=== PATIENT | female | born 1970 | race American Indian/Alaskan Native ===

== ENCOUNTER 2017-04-12 22:15 | Emergency (ER) | payer MEDICAID ==
[2017-04-12] MEDS ORDERED: DILAUDID IV ONE (23:20)
[2017-04-12] MEDS ORDERED: NACL 0.9% 1000 ML 1,000 ML IV ONE (23:21)
[2017-04-12] MEDS ORDERED: XYLOCAINE TOPICAL 2% TP ONE (23:21)
--- NOTE | 2017-04-12 23:39 | Emergency Department Report ---
HPI - General Chief Complaint: Abdominal Pain Time Seen by Provider: 04/12/17 23:20 - HPI HPI: Chief complaint; I have abdominal back and buttock pain Patient had laparoscopic hysterectomy 1 week ago. She had been taking oxycodone 5 for pain was tolerable until Wednesday. She states she tried to ignore it thinking he might be normal postsurgical pain. But today it got worse , which she has been doubling up on her oxicodone and then came to the ED. Patient denied any fever or chills night sweats. Does have a history of hemorrhoid complaining of rectal pain similar to previous hemorrhoid pain. Patient denies any dysuria Symptoms No Blood in Urine No Blood in Stools. ED Past Medical Hx - Past Medical History Previous Medical History?: Yes Hx Hypertension: Yes Hx Psychiatric Treatment: Yes (depression) - Surgical History Past Surgical History?: Yes Hx Pacemaker: No Additional Surgical History: c4 & c5. anal-vaginal fistula repair. colostomy/ reversal. x1. lymph nodes removed. laparoscopic hysterectomy - Social History Smoking Status: Current Every Day Smoker - Medications Home Medications: Home Medications Medication Instructions Recorded Confirmed Last Taken Type Hydrochlorothiazide [HCTZ] 25 mg PO QDAY 06/21/13 11/05/14 11/04/14 History Aspirin [Aspirin BABY CHEW TAB] 81 mg PO QDAY 06/29/14 11/05/14 11/04/14 History Citalopram Hydrobromide [celeXA] 20 mg PO DAILY 11/05/14 11/05/14 11/04/14 History Gabapentin [Neurontin] 300 mg PO Q8H PRN 11/05/14 11/05/14 11/05/14 History Losartan [Cozaar] 25 mg PO QDAY 11/05/14 11/05/14 11/04/14 History Naproxen [Naprosyn TAB] 500 mg PO DAILY 11/05/14 11/05/14 11/05/14 History Potassium Chloride 10 meq PO QDAY #30 capsule.er 11/06/14 Unknown Rx traMADol [Ultram] 50 mg PO Q6HR PRN #20 tablet 02/06/16 Unknown Rx Ciprofloxacin HCl [Ciprofloxacin 500 mg PO Q12HR #14 tab 04/13/17 Unknown Rx TAB] metroNIDAZOLE [Flagyl TAB] 500 mg PO Q12HR #14 tab 04/13/17 Unknown Rx oxyCODONE /ACETAMINOPHEN [Percocet 1 tab PO Q6HR PRN #7 tablet 04/13/17 Unknown Rx 5/325 mg] ED Review of Systems ROS: Stated complaint: BACKPAIN Other details as noted in HPI Comment: All other systems reviewed and negative Endocrine: no symptoms reported Gastrointestinal: nausea, vomiting Musculoskeletal: back pain Physical Exam - Physical Exam Vital Signs: Vital Signs 04/12/17 23:00 Temperature 99.3 F Pulse Rate 102 H Respiratory 18 Rate Blood Pressure 131/75 O2 Sat by Pulse 99 Oximetry Physical Exam: Vital signs reviewed Gen. alert and oriented 3 in no distress Head atraumatic normocephalic Eyes PERR LA EOMI Chest regular rate and rhythm normal S1-S2 lungs clear bilaterally Abdomen soft nondistended Back no point tenderness paravertebral tenderness Neuro no focal deficit. Psych normal mood. Rectal external hemorrhoids, dry, scattered condyloma, no melena. ED Course Vital Signs 04/12/17 23:00 Temperature 99.3 F Pulse Rate 102 H Respiratory 18 Rate Blood Pressure 131/75 O2 Sat by Pulse 99 Oximetry - Reevaluation(s) Reevaluation #1: 04/13/17 01:18 ER Presentation Patient Received Dilaudid 1 Mg IV for Pain. Soon after Patient Started Yelling for More Pain Medicine. Patient advised to allow appropriate time for medicine to take affect. However patient remained agitated complaining of hemorrhoid pain, started lidocaine jelly and applied that to the hemorrhoids. 15 minutes later the patient complained that that she needs more lidocaine I advised patient that the lidocaine jelly cannot be applied to soon after the first dose. Patient became very angry, very verbally abusive towards myself and staff. CT abdomen and pelvis showed only mild colitis. ED Medical Decision Making - Lab Data Result diagrams: 04/13/17 00:39 04/13/17 00:39 Critical care attestation.: If time is entered above; I have spent that time in minutes in the direct care of this critically ill patient, excluding procedure time. ED Disposition Clinical Impression: Colitis Disposition: DC-01 TO HOME OR SELFCARE Is pt being admited?: No Does the pt Need Aspirin: No Condition: Stable Prescriptions: Ciprofloxacin HCl [Ciprofloxacin TAB] 500 mg PO Q12HR #14 tab metroNIDAZOLE [Flagyl TAB] 500 mg PO Q12HR #14 tab oxyCODONE /ACETAMINOPHEN [Percocet 5/325 mg] 1 tab PO Q6HR PRN #7 tablet PRN Reason: Pain Referrals: PRIMARY CARE, [Primary Care Provider] - 3-5 Days Forms: Work/School Release Form(ED)
--- NOTE | 2017-04-13 00:32 | Cat Scan Report ---
FINAL REPORT PROCEDURE: CT ABDOMEN PELVIS WO CON TECHNIQUE: Computerized axial tomography of the abdomen and pelvis was performed without intravenous contrast. This study is performed without intravascular contrast material and its sensitivity for abdominal and pelvic pathology, including neoplasms, inflammation, abscess, free fluid, thrombosis, arterial dissection and infarction, is reduced compared with a contrast enhanced study. HISTORY: abd pain post hysterectomy COMPARISON: No prior studies are available for comparison. FINDINGS: Visualized lower thorax: No significant abnormality. Liver: Normal size and attenuation. Spleen: Normal size and attenuation. Gallbladder and biliary system: Normal. Pancreas: Normal. Adrenals: Normal. Kidneys: Both kidneys have normal size. No hydronephrosis.. GI tract: No obstruction is seen. No ileus or enteritis. The cecum is normal. Minimal fecal debris identified throughout the colon. There is slight bowel wall thickening involving the sigmoid colon region. There is some surrounding postoperative changes from the patient's recent hysterectomy. Minimal fluid in the lower pelvic region is noted. Earlier the short segment colitis is not excluded on this study. No complication is seen at this time. There appears to have been previous surgery in the left lower colon region.. Lymph nodes and mesentery: There is some mesenteric changes in the lower pelvis consistent with the patient's history of recent hysterectomy. Postoperative changes with minimal fluid. Vasculature: Normal. Bladder: Normal. Reproductive organs: The uterus has been removed. No pelvic masses are noted. Postoperative changes with some streaking of the mesentery in the lower pelvis and minimal lower pelvic fluid is noted.. Peritoneum: Minimal fluid in the lower pelvis. Postoperative change from recent hysterectomy is noted.. Musculoskeletal structures: No significant abnormality. Other: There is a fat containing umbilical hernia cavity. There are some postoperative changes identified in the anterior abdominal wall near the umbilicus. No large fluid collection, seroma or hematoma is seen at this time.. IMPRESSION: Postoperative changes from recent hysterectomy are identified as discussed. Minimal fluid in the lower pelvis is noted. There is some bowel wall thickening involving the sigmoid colon with some fluid surrounding this region. A short segment colitis is not excluded on the basis of this study. No complication is noted. Moderate-sized fat containing umbilical hernia cavity. There are some postoperative changes identified in the anterior abdominal wall near the umbilicus. No large fluid collection at this time..
[2017-04-13] MEDS ORDERED: DILAUDID IV ONE (01:01)
[2017-04-13 01:18] LABS: Basophils % (Auto) 0.2 % (0.0-1.8); Eosinophils % (Auto) 0.5 % (0.0-4.3); Hematocrit 37.2 % (30.3-42.9); Hemoglobin 12.2 gm/dl (10.1-14.3); Mean Corpuscular HGB Conc 33 % (30-34); Mean Corpuscular Hemoglobin 27 pg (28-32); Mean Corpuscular Volume 82 fl (79-97); Platelet Count 362 K/mm3 (140-440); Red Blood Count 4.51 M/mm3 (3.65-5.03); Red Cell Distribution Width 17.7 % (13.2-15.2); White Blood Count 16.9 K/mm3 (4.5-11.0)
[2017-04-13 01:32] LABS: INR 1.02 (0.87-1.13)
[2017-04-13 01:38] LABS: Anion Gap 19 mmol/L; Blood Urea Nitrogen 7 mg/dL (7-17); Calcium 8.7 mg/dL (8.4-10.2); Carbon Dioxide 23 mmol/L (22-30); Chloride 101.6 mmol/L (98-107); Glucose 137 mg/dL (65-100); Potassium 3.2 mmol/L (3.6-5.0); Sodium 140 mmol/L (137-145)
[2017-04-13 03:26] VITALS: BP 151/79
== END 2017-04-13 03:25 | disposition home or self-care (01) ==
LOC: ED 22:15
DX: K52.9 Noninfective gastroenteritis and colitis, unspecified (principal); I10 Essential (primary) hypertension; F32.9 Major depressive disorder, single episode, unspecified; F17.210 Nicotine dependence, cigarettes, uncomplicated; Z79.82 Long term (current) use of aspirin
CPT/HCPCS: 36415; 74176; 80048; 85025; 85610; 96361; 96374; 96376; 99284; J1170; J7030

== ENCOUNTER 2017-04-23 09:44 | Outpatient (CLI) | payer MEDICAID ==
--- NOTE | 2017-04-23 11:49 | Magnetic Resonance Report ---
MRI BRAIN WITHOUT CONTRAST INDICATION: Headache. COMPARISON: 06/29/[address] FINDINGS: Noncontrast multiplanar and multisequence MRI of the brain demonstrates normal ventricles and sulci without acute hemorrhage, mass effect or midline shift. Slight periventricular FLAIR and T2 weighted hyperintensities. Approximately 5 mm left cerebellar acute restricted diffusion focus. No abnormal extra-axial masses or fluid collections. Benign bilateral basal ganglia calcifications. Normal major intracranial vascular flow voids. Small linear old left cerebellar lacunar infarct also noted as on axial series 6, image 8. Normal remainder posterior fossa structures with symmetric seventh and eighth nerve complexes. Symmetric, grossly unremarkable eye globes. Slight ethmoid and maxillary sinus mucosal thickening. Mild right frontal sinusitis. Normal midline structures without evidence of Chiari malformation. CONCLUSION: Approximately 5 mm left cerebellar acute infarct and few other findings, as described. Thank you for the opportunity to participate in this patient's care.
== END 2017-04-23 09:45 | disposition home or self-care (01) ==
LOC: MRI 09:44
PROVIDERS: ATTEND Psychiatry & Neurology Neurology
DX: I63.9 Cerebral infarction, unspecified (principal); G23.8 Other specified degenerative diseases of basal ganglia; J32.1 Chronic frontal sinusitis; I10 Essential (primary) hypertension; F32.9 Major depressive disorder, single episode, unspecified; F17.200 Nicotine dependence, unspecified, uncomplicated
CPT/HCPCS: 70551

== ENCOUNTER 2017-07-04 14:02 | Emergency (ER) | payer MEDICARE ==
[2017-07-04 14:56] LABS: Basophils % (Auto) 0.3 % (0.0-1.8); Eosinophils % (Auto) 0.9 % (0.0-4.3); Hemoglobin 14.3 gm/dl (10.1-14.3); Mean Corpuscular HGB Conc 32 % (30-34); Mean Corpuscular Hemoglobin 27 pg (28-32); Mean Corpuscular Volume 83 fl (79-97); Platelet Count 294 K/mm3 (140-440); Red Cell Distribution Width 17.3 % (13.2-15.2)
[2017-07-04 15:09] LABS: Anion Gap 16 mmol/L; BUN/Creatinine Ratio 14; Blood Urea Nitrogen 10 mg/dL (7-17); Calcium 8.7 mg/dL (8.4-10.2); Carbon Dioxide 26 mmol/L (22-30); Chloride 107.3 mmol/L (98-107); Glucose 130 mg/dL (65-100); Potassium 3.9 mmol/L (3.6-5.0); Sodium 145 mmol/L (137-145)
[2017-07-04 15:49] LABS: Bacteria,Urine 1+ /HPF (Negative); Bilirubin,Urine NEG (Negative); Blood,Urine SM (Negative); Ketones,Urine NEG (Negative); Leukocyte Esterase,Urine NEG (Negative); Mucus,Urine 3+ /HPF; Nitrite,Urine NEG (Negative)
[2017-07-04] MEDS ORDERED: DUONEB *Not for PRN Use IH ONE (20:32)
--- NOTE | 2017-07-04 20:39 | Emergency Department Report ---
ED Shortness of Breath HPI - General Chief Complaint: Upper Respiratory Infection Stated Complaint: COUGH, MOLD EXPOSURE Time Seen by Provider: 07/04/17 20:03 Source: patient Mode of arrival: Ambulatory Limitations: No Limitations - History of Present Illness Initial Comments: 47-year-old female presents emergency Department with shortness of breath and cough for 4 days. Patient states that she's noticed some mold in her apartment and feels like this may be the culprit. She denies fevers chills. She states that her cough has worsened over the last couple days and is now productive. She has some mild difficulty breathing. She is a smoker. MD Complaint: shortness of breath -: days(s) (4) Severity: mild Consistency: constant Improves With: nothing Worsens With: nothing Context: allergen exposure - Related Data Home Medications Medication Instructions Recorded Confirmed Last Taken Hydrochlorothiazide [HCTZ] 25 mg PO QDAY 06/21/13 11/05/14 11/04/14 Aspirin [Aspirin BABY CHEW TAB] 81 mg PO QDAY 06/29/14 11/05/14 11/04/14 Citalopram Hydrobromide [celeXA] 20 mg PO DAILY 11/05/14 11/05/14 11/04/14 Gabapentin [Neurontin] 300 mg PO Q8H PRN 11/05/14 11/05/14 11/05/14 Losartan [Cozaar] 25 mg PO QDAY 11/05/14 11/05/14 11/04/14 Naproxen [Naprosyn TAB] 500 mg PO DAILY 11/05/14 11/05/14 11/05/14 Previous Rx's Medication Instructions Recorded Last Taken Type Potassium Chloride 10 meq PO QDAY #30 capsule.er 11/06/14 Unknown Rx traMADol [Ultram] 50 mg PO Q6HR PRN #20 tablet 02/06/16 Unknown Rx Ciprofloxacin HCl [Ciprofloxacin 500 mg PO Q12HR #14 tab 04/13/17 Unknown Rx TAB] metroNIDAZOLE [Flagyl TAB] 500 mg PO Q12HR #14 tab 04/13/17 Unknown Rx oxyCODONE /ACETAMINOPHEN [Percocet 1 tab PO Q6HR PRN #7 tablet 04/13/17 Unknown Rx 5/325 mg] Albuterol Sulfate [Proair 90 mcg IH Q4HR PRN #1 aer.pow.ba 07/04/17 Unknown Rx Respiclick] predniSONE [Deltasone] 20 mg PO QDAY #8 tab 07/04/17 Unknown Rx Allergies Allergy/AdvReac Type Severity Reaction Status Date / Time lisinopril Allergy Angioedema Verified 04/12/17 23:12 tramadol Allergy Rash Verified 04/12/17 23:12 ED Review of Systems ROS: Stated complaint: COUGH, MOLD EXPOSURE Other details as noted in HPI Comment: All other systems reviewed and negative Constitutional: denies: chills, fever ENT: denies: ear pain, throat pain, dental pain Respiratory: cough, shortness of breath. denies: wheezing Cardiovascular: denies: chest pain, palpitations Endocrine: no symptoms reported Gastrointestinal: denies: abdominal pain, nausea, diarrhea Genitourinary: denies: urgency, dysuria, discharge Musculoskeletal: denies: back pain, joint swelling, arthralgia Skin: denies: rash, lesions Neurological: denies: headache, weakness, paresthesias Psychiatric: denies: anxiety, depression Hematological/Lymphatic: denies: easy bleeding, easy bruising ED Past Medical Hx - Past Medical History Previous Medical History?: Yes Hx Hypertension: Yes Hx Psychiatric Treatment: Yes (depression) - Surgical History Hx Pacemaker: No Additional Surgical History: c4 & c5. anal-vaginal fistula repair. colostomy/ reversal. x1. lymph nodes removed. laparoscopic hysterectomy - Family History Family history: no significant - Social History Smoking Status: Current Every Day Smoker - Medications Home Medications: Home Medications Medication Instructions Recorded Confirmed Last Taken Type Hydrochlorothiazide [HCTZ] 25 mg PO QDAY 06/21/13 11/05/14 11/04/14 History Aspirin [Aspirin BABY CHEW TAB] 81 mg PO QDAY 06/29/14 11/05/14 11/04/14 History Citalopram Hydrobromide [celeXA] 20 mg PO DAILY 11/05/14 11/05/14 11/04/14 History Gabapentin [Neurontin] 300 mg PO Q8H PRN 11/05/14 11/05/14 11/05/14 History Losartan [Cozaar] 25 mg PO QDAY 11/05/14 11/05/14 11/04/14 History Naproxen [Naprosyn TAB] 500 mg PO DAILY 11/05/14 11/05/14 11/05/14 History Potassium Chloride 10 meq PO QDAY #30 capsule.er 11/06/14 Unknown Rx traMADol [Ultram] 50 mg PO Q6HR PRN #20 tablet 02/06/16 Unknown Rx Ciprofloxacin HCl [Ciprofloxacin 500 mg PO Q12HR #14 tab 04/13/17 Unknown Rx TAB] metroNIDAZOLE [Flagyl TAB] 500 mg PO Q12HR #14 tab 04/13/17 Unknown Rx oxyCODONE /ACETAMINOPHEN [Percocet 1 tab PO Q6HR PRN #7 tablet 04/13/17 Unknown Rx 5/325 mg] Albuterol Sulfate [Proair 90 mcg IH Q4HR PRN #1 aer.pow.ba 07/04/17 Unknown Rx Respiclick] predniSONE [Deltasone] 20 mg PO QDAY #8 tab 07/04/17 Unknown Rx ED Physical Exam - General Limitations: No Limitations General appearance: alert, in no apparent distress, obese - Head Head exam: Present: atraumatic, normocephalic - Eye Eye exam: Present: normal appearance. Absent: scleral icterus, conjunctival injection - ENT ENT exam: Present: mucous membranes moist - Neck Neck exam: Present: normal inspection - Respiratory Respiratory exam: Present: wheezes (scant wheezes). Absent: respiratory distress - Cardiovascular Cardiovascular Exam: Present: regular rate, normal rhythm, normal heart sounds. Absent: systolic murmur, diastolic murmur, rubs, gallop - GI/Abdominal GI/Abdominal exam: Present: soft, normal bowel sounds. Absent: distended, tenderness - Extremities Exam Extremities exam: Present: normal inspection - Back Exam Back exam: Present: normal inspection - Neurological Exam Neurological exam: Present: alert, oriented X3 - Psychiatric Psychiatric exam: Present: normal affect, normal mood - Skin Skin exam: Present: warm, dry, intact, normal color. Absent: rash ED Course Vital Signs 07/04/17 07/04/17 07/04/17 14:34 20:02 21:13 Temperature 98.8 F 98.4 F Pulse Rate 86 83 Pulse Rate [ 87 Anterior Bilateral Throughout] Respiratory 18 17 Rate Respiratory 18 Rate [Anterior Bilateral Throughout] Blood Pressure 153/102 Blood Pressure 153/102 141/91 [Right] O2 Sat by Pulse 95 97 Oximetry ED Medical Decision Making - Lab Data Result diagrams: 07/04/17 14:45 07/04/17 14:45 Laboratory Results - last 24 hr 07/04/17 07/04/17 07/04/17 14:45 14:45 Unknown WBC 12.0 H RBC 5.30 H Hgb 14.3 Hct 44.0 H MCV 83 MCH 27 L MCHC 32 RDW 17.3 H Plt Count 294 Lymph % (Auto) 31.0 [place] % (Auto) 4.6 Eos % (Auto) 0.9 Baso % (Auto) 0.3 Lymph # 3.7 [place] # 0.5 Eos # 0.1 Baso # 0.0 Seg Neutrophils % 63.2 Seg Neutrophils # 7.6 Sodium 145 Potassium 3.9 Chloride 107.3 H Carbon Dioxide 26 Anion Gap 16 BUN 10 Creatinine 0.7 Estimated GFR > 60 BUN/Creatinine Ratio 14 Glucose 130 H Calcium 8.7 Urine Color Yellow Urine Turbidity Clear Urine pH 6.0 Ur Specific [place] 1.025 Urine Protein 100 mg/dl Urine Glucose (UA) Neg Urine Ketones Neg Urine Blood Sm Urine Nitrite Neg Urine Bilirubin Neg Urine Urobilinogen 2.0 Ur Leukocyte Esterase Neg Urine WBC (Auto) 2.0 Urine RBC (Auto) 12.0 U Epithel Cells (Auto) 23.0 H Urine Bacteria (Auto) 1+ Urine Mucus 3+ - Medical Decision Making 47-year-old female presents with cough and shortness of breath after questionable mold exposure. Mild wheezes. She does have slight white blood cell count on CBC. Plan chest x-ray treated with single med and reassess. No history of asthma in the past. Slightly improved after neb. Plan to treat with steroids and discharged with an inhaler. Portions of this chart were dictated with dictation software. There may be dictation errors contained within this note. Critical care attestation.: If time is entered above; I have spent that time in minutes in the direct care of this critically ill patient, excluding procedure time. ED Disposition Clinical Impression: Wheezing Disposition: OP ADMIT IP TO THIS HOSP Is pt being admited?: No Condition: Stable Instructions: Reactive Airways Disease (ED) Prescriptions: Albuterol Sulfate [Proair Respiclick] 90 mcg IH Q4HR PRN #1 aer.pow.ba PRN Reason: Wheezing predniSONE [Deltasone] 20 mg PO QDAY #8 tab Referrals: PRIMARY CARE, [Primary Care Provider] - 3-5 Days
--- NOTE | 2017-07-04 21:02 | XRay Report ---
FINAL REPORT EXAM: XR CHEST 1V AP HISTORY: sob COMPARISON: None available. FINDINGS: Frontal view(s) of the chest obtained. Cardiac silhouette within normal limits. No gross consolidation or effusion. No pneumothorax. IMPRESSION: No grossly acute findings.
[2017-07-04] MEDS ORDERED: DELTASONE PO ONE (22:04)
[2017-07-04 22:59] VITALS: BP 141/89
== END 2017-07-04 22:35 | disposition admitted as inpatient to this hospital (09) ==
LOC: ED 14:02
DX: R06.2 Wheezing (principal); I10 Essential (primary) hypertension; F17.200 Nicotine dependence, unspecified, uncomplicated
CPT/HCPCS: 36415; 71010; 80048; 81001; 85025; 94640; 99284; J7512

== ENCOUNTER 2018-03-04 13:41 | Emergency (ER) | payer MEDICARE ==
[2018-03-04 14:04] VITALS: BP 108/74
--- NOTE | 2018-03-04 16:01 | Emergency Department Report ---
ED Back Pain/Injury HPI - General Chief Complaint: Back Pain/Injury Stated Complaint: BACK PAIN Time Seen by Provider: 03/04/18 15:44 Source: patient Limitations: No Limitations - History of Present Illness Initial Comments: Patient is a 47-year-old female past history of spinal stenosis who is presenting with lower back pain for the last week. Patient did have a fall 2-3 weeks ago and thinks this may have exacerbated some of her increased pain. Patient denies any fecal incontinence or urinary retention. Patient denies any fever she is ambulatory and able to walk. Patient states she does not have any pain meds and is in between pain doctors. Patient does have a appointment to see her primary care physician that is new next week. MD Complaint: back pain Severity: moderate Severity scale (0 -10): 7 - Related Data Home Medications Medication Instructions Recorded Confirmed Last Taken Hydrochlorothiazide [HCTZ] 25 mg PO QDAY 06/21/13 11/05/14 11/04/14 Aspirin [Aspirin BABY CHEW TAB] 81 mg PO QDAY 06/29/14 11/05/14 11/04/14 Citalopram Hydrobromide [celeXA] 20 mg PO DAILY 11/05/14 11/05/14 11/04/14 Losartan [Cozaar] 25 mg PO QDAY 11/05/14 11/05/14 11/04/14 Naproxen [Naprosyn TAB] 500 mg PO DAILY 11/05/14 11/05/14 11/05/14 Previous Rx's Medication Instructions Recorded Last Taken Type Potassium Chloride 10 meq PO QDAY #30 capsule.er 11/06/14 Unknown Rx traMADol [Ultram] 50 mg PO Q6HR PRN #20 tablet 02/06/16 Unknown Rx Ciprofloxacin HCl [Ciprofloxacin 500 mg PO Q12HR #14 tab 04/13/17 Unknown Rx TAB] metroNIDAZOLE [Flagyl TAB] 500 mg PO Q12HR #14 tab 04/13/17 Unknown Rx oxyCODONE /ACETAMINOPHEN [Percocet 1 tab PO Q6HR PRN #7 tablet 04/13/17 Unknown Rx 5/325 mg] Albuterol Sulfate [Proair 90 mcg IH Q4HR PRN #1 aer.pow.ba 07/04/17 Unknown Rx Respiclick] predniSONE [Deltasone] 20 mg PO QDAY #8 tab 07/04/17 Unknown Rx Gabapentin [Neurontin] 300 mg PO Q8H PRN #90 capsule 03/04/18 Unknown Rx HYDROcodone/ACETAMINOPHEN 1 each PO Q6HR PRN #12 tablet 03/04/18 Unknown Rx [Hydrocodon-Acetaminophen 5-325] Losartan/Hydrochlorothiazide 1 each PO DAILY #30 tablet 03/04/18 Unknown Rx [Losartan-Hctz 100-25 mg Tab] Meloxicam [Mobic] 7.5 mg PO BID #12 tablet 03/04/18 Unknown Rx amLODIPine [Norvasc] 10 mg PO DAILY #30 tab 03/04/18 Unknown Rx Allergies Allergy/AdvReac Type Severity Reaction Status Date / Time lisinopril Allergy Angioedema Verified 04/12/17 23:12 tramadol Allergy Rash Verified 04/12/17 23:12 ED Review of Systems ROS: Stated complaint: BACK PAIN Other details as noted in HPI Comment: All other systems reviewed and negative ED Past Medical Hx Family history: no significant family history ED Back Pain Physical Exam - Exam General: Vital signs noted. No distress. Alert and acting appropriately. Back/Abdomen: Yes Perilumbar Tenderness, Yes Straight Leg Raise Pain, No Abdominal Tenderness, No Perithoracic Tenderness, No Sacroiliac Tenderness, No Flank Tenderness Neuro: Yes Normal Sensation, Yes Normal DTR's, Yes Normal Gait, No Motor Weakness ED Course Vital Signs 03/04/18 13:59 Temperature 98.4 F Pulse Rate 77 Respiratory 18 Rate Blood Pressure 108/74 O2 Sat by Pulse 98 Oximetry ED Medical Decision Making - Medical Decision Making Patient will be given meds for symptomatic relief will be discharged home. Critical care attestation.: If time is entered above; I have spent that time in minutes in the direct care of this critically ill patient, excluding procedure time. ED Disposition Clinical Impression: Lumbago Qualifiers: Chronicity: acute Back pain laterality: unspecified Sciatica presence: without sciatica Qualified Code(s): M54.5 - Low back pain Disposition: TO HOME OR SELFCARE Is pt being admited?: No Does the pt Need Aspirin: No Condition: Stable Prescriptions: amLODIPine [Norvasc] 10 mg PO DAILY #30 tab Gabapentin [Neurontin] 300 mg PO Q8H PRN #90 capsule PRN Reason: Pain HYDROcodone/ACETAMINOPHEN [Hydrocodon-Acetaminophen 5-325] 1 each PO Q6HR PRN # 12 tablet PRN Reason: Pain Losartan/Hydrochlorothiazide [Losartan-Hctz 100-25 mg Tab] 1 each PO DAILY #30 tablet Meloxicam [Mobic] 7.5 mg PO BID #12 tablet Referrals: PRIMARY CARE, [Primary Care Provider] - 3-5 Days
[2018-03-04] MEDS ORDERED: NORCO 7.5/325 ONE (16:13)
[2018-03-04] MEDS ORDERED: NORCO 7.5/325 PO ONE (16:14)
== END 2018-03-04 16:19 | disposition home or self-care (01) ==
LOC: ED 13:41 → EEVIPCON 13:41 → ED 16:19
DX: M54.5 Low back pain (principal)

== ENCOUNTER 2018-03-23 15:21 | Outpatient (CLI) | payer MEDICARE ==
--- NOTE | 2018-03-23 16:34 | XRay Report ---
FINAL REPORT EXAM: XR SPINE LUMBOSACRAL 4+V HISTORY: RADICULOPATHY,LUMBAR REGION TECHNIQUE: AP, lateral, bilateral oblique and coned-down views of lumbar spine. PRIORS: None. FINDINGS: No loss of height or gross malalignment of lumbar vertebral bodies. No obvious osseous destruction. Lumbar disc spaces maintained. Mild facet sclerosis in mid-lower lumbar spine. Paraspinal soft tissues grossly unremarkable. IMPRESSION: 1. No acute osseous abnormality.
== END 2018-03-23 15:22 | disposition home or self-care (01) ==
LOC: XRAY 15:21
DX: M54.16 Radiculopathy, lumbar region (principal); G95.89 Other specified diseases of spinal cord; G62.9 Polyneuropathy, unspecified; I10 Essential (primary) hypertension; F32.9 Major depressive disorder, single episode, unspecified; F17.210 Nicotine dependence, cigarettes, uncomplicated; Z90.710 Acquired absence of both cervix and uterus
CPT/HCPCS: 72110

== ENCOUNTER 2018-07-01 06:51 | Outpatient (CLI) | payer MEDICARE ==
--- NOTE | 2018-07-01 09:22 | XRay Report ---
XRAY RIGHT KNEE 2 VIEWS: 07/01/18 06:51:00 CLINICAL: Right knee pain. FINDINGS: Mild osteoarthritis of the medial joint with narrowing of the joint space and early osteophyte formation. The lateral joint space is normal. Small patellofemoral osteophytes. No fracture or dislocation. No joint effusion.Normal soft tissues. 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
--- NOTE | 2018-07-02 08:11 | Magnetic Resonance Report ---
FINAL REPORT EXAM: MR CERVICAL SPINE WO CON HISTORY: M54.12 CERVICAL RADICULAR PAIN/M54.2 CERVICALGIA TECHNIQUE: Multi sequence, multiplanar MR imaging was obtained through the cervical spine without contrast. PRIORS: None FINDINGS: The imaged portion of the posterior fossa is unremarkable. Patient is status post anterior discectomy and fusion at C4-C5. There is associated susceptibility artifact. The cervical cord is focally smaller with increased T2 weighted signal at this level, best demonstrated on sagittal series 2, image 10. No epidural space collection is identified. The cervical spinal cord is otherwise normal in caliber and signal characteristics. There is pulsation artifact. The paraspinal soft tissues including imaged mucosal spaces of the neck are unremarkable. Vertebral body heights throughout the cervical spine are preserved. Marrow signal is otherwise within normal limits. No listhesis. At C2-C3 there is a small posterior disc osteophyte complex with asymmetric left greater than right uncovertebral joint hypertrophy resulting in mild left neural foraminal stenosis. At C3-C4 there is a small posterior disc osteophyte complex with uncovertebral joint hypertrophy resulting in mild spinal canal and right greater than left neural foraminal stenosis. At C4-C5 there is posterior endplate spondylosis with uncovertebral joint hypertrophy and facet arthropathy resulting in mild spinal canal and bilateral neural foraminal stenosis. At C5-C6 there is a small posterior disc osteophyte complex with uncovertebral joint hypertrophy and mild spinal canal and neural foraminal narrowing. At C6-C7 there is a small posterior disc osteophyte complex without significant spinal canal or neural foraminal narrowing. AT C7-T1 there is no significant spinal canal or neural foraminal narrowing. IMPRESSION: Focal myelomalacia at the C4-C5 level status post anterior discectomy infusion. The cervical cord is otherwise normal in caliber and signal characteristics. Correlation with prior imaging is requested. Mild spinal canal and neural foraminal stenosis at C2-C3 through C5-C6, as detailed above.
== END 2018-07-01 06:52 | disposition home or self-care (01) ==
LOC: MRI 06:51
DX: M48.02 Spinal stenosis, cervical region (principal); G95.89 Other specified diseases of spinal cord; M17.11 Unilateral primary osteoarthritis, right knee; I10 Essential (primary) hypertension; Z90.710 Acquired absence of both cervix and uterus; Z90.12 Acquired absence of left breast and nipple; Z87.891 Personal history of nicotine dependence
CPT/HCPCS: 72141

== ENCOUNTER 2018-09-26 07:09 | Outpatient (CLI) | payer MEDICARE ==
--- NOTE | 2018-09-26 08:50 | XRay Report ---
LEFT HIP, 2 views: History: Left hip pain. The bony architecture is intact without evidence of fracture or dislocation. No significant soft tissue abnormality is seen. IMPRESSION: Left hip within normal limits.
--- NOTE | 2018-09-26 08:54 | Mammography Report ---
BILATERAL DIGITAL SCREENING MAMMOGRAM with CAD: 09/26/18 CLINICAL: Routine screening. COMPARISON:None available. However, a prior mammogram was apparently done in [place], [place]. FINDINGS: The breasts are almost entirely fatty. Left asymmetries on both views require comparison comparison with a prior mammogram or additional imaging.No architectural distortion or suspicious calcifications.The right breast is negative. IMPRESSION: Left asymmetries requiring further evaluation. BI-RADS CATEGORY: 0 -- Additional Evaluation Required RECOMMENDATION: Comparison with a previous mammogram. We will attempt to obtain a prior mammogram for comparison. If we do not obtain a prior mammogram within 30 days, a revised report will be issued recommending a recall for additional imaging. Please be advised that the patient should not schedule an appointment for return until adequate time (at least 2 weeks) has passed for us to obtain the prior mammogram. ACR BI-RADS MAMMOGRAPHIC CODES: 0 = Needs additional imaging evaluation; 1 = Negative; 2 = Benign; 3 = Probably benign; 4 = Suspicious; 5 = Malignant; 6 = Known biopsy-proven malignancy COMMENT: 1. Dense breast tissue, i.e., adenosis, fibrocystic changes, etc., may obscure an underlying neoplasm. 2. Approximately 10% of cancers are not detected with mammography. 3. A negative mammography report should not delay biopsy if a clinically suspicious mass is present. COMMENT: Patient follow-up letters are generated via our [employer] application.
== END 2018-09-26 07:10 | disposition home or self-care (01) ==
LOC: MAMMO 07:09
DX: Z12.31 Encounter for screening mammogram for malignant neoplasm of breast (principal); M25.552 Pain in left hip; I10 Essential (primary) hypertension; Z90.710 Acquired absence of both cervix and uterus; Z90.12 Acquired absence of left breast and nipple; Z87.891 Personal history of nicotine dependence
CPT/HCPCS: 77067

== ENCOUNTER 2018-11-24 09:48 | Outpatient (CLI) | payer MEDICARE ==
[2018-11-24 11:01] LABS: Alanine Aminotransferase 8 units/L (7-56); Albumin 3.7 g/dL (3.9-5); BUN/Creatinine Ratio 13; Blood Urea Nitrogen 9 mg/dL (7-17); Chol/HDL Ratio 2.18 %; HDL Cholesterol 58 mg/dL (40-59); Hemolysis Index 6; LDL Cholesterol,Direct 66 mg/dL (50-130)
== END 2018-11-24 09:49 | disposition home or self-care (01) ==
LOC: LAB 09:48
PROVIDERS: ATTEND Internal Medicine
DX: E78.5 Hyperlipidemia, unspecified (principal); I10 Essential (primary) hypertension; E11.9 Type 2 diabetes mellitus without complications; E55.9 Vitamin D deficiency, unspecified; M19.90 Unspecified osteoarthritis, unspecified site; F17.210 Nicotine dependence, cigarettes, uncomplicated; Z90.710 Acquired absence of both cervix and uterus
CPT/HCPCS: 36415; 80053; 80061; 83036

== ENCOUNTER 2019-02-21 08:55 | Outpatient (CLI) | payer MEDICARE ==
--- NOTE | 2019-02-21 11:34 | Ultrasound Report ---
LEFT DIGITAL DIAGNOSTIC MAMMOGRAM and LEFT BREAST ULTRASOUND: 02/21/19 08:55:00 CLINICAL: 6 month followup of asymmetry. COMPARISON:09/26/18 screening FINDINGS: Routine views plus spot magnification MLO and cc views were performed. An oval low-density 9 x 4 x 7 mm mass persists on all views and has not changed in size. Ultrasound of the left breast was performed from 11 o'clock to 1 o'clock and fail to demonstrate an ultrasound correlate. Ultrasound demonstrated normal fibroglandular and fatty structures with no mass, cyst or shadowing. IMPRESSION: A stable probably benign 9 mm mass at 12 o'clock approximately 6 cm from the nipple. BI-RADS CATEGORY: 3 - - Probably Benign RECOMMENDATION: 6 month followup left diagnostic mammogram. COMMENT: 1. Dense breast tissue, i.e., adenosis, fibrocystic changes, etc., may obscure an underlying neoplasm. 2. Approximately 10% of cancers are not detected with mammography. 3. A negative mammography report should not delay biopsy if a clinically suspicious mass is present. COMMENT: Patient follow-up letters are generated via our [employer] application.
--- NOTE | 2019-02-21 18:34 | Magnetic Resonance Report ---
PROCEDURE: MR LUMBAR SPINE WO CON HISTORY: SPONDYLOSIS, PAIN IN BILAT HIP, SACROILITIS FINDINGS: MRI of the lumbar spine was performed using sagittal T1, sagittal T2, sagittal inversion re covery, axial T1 and axial T2-weighted images. These images demonstrate that the conus medullaris lies at the level of T12-L1 and appears unremarkab le. At T12-L1, L1-L2 and L2-L3 there are no posterior disc abnormalities. There is no evidence of canal s tenosis or nerve root impingement. At L3-L4 intervertebral disc is normal in height and T2 signal intensity. There is a minimal posterio r disc bulge resulting in mild bilateral neural foraminal narrowing without nerve root impingement. T here is mild facet hypertrophy at this level. At L4-L5, there is loss of disc T2 signal intensity. There is a right posterior annular fissure, sagi ttal T2-weighted image 12. There is mild bilateral neural foraminal narrowing without nerve root impi ngement. There is mild facet hypertrophy at this level. At L5-S1 there is loss of disc T2 signal intensity. There is no evidence of canal stenosis or signifi cant neural foraminal narrowing. There is mild facet hypertrophy at this level. The patient reportedly has SI joint symptomatology. No evidence of fracture is seen in the visualized portion of the sacrum. There is some trace fluid in both sacroiliac joints, axial T2-weighted images 2 and 3, and there is probably some subchondral sclerosis of both sacroiliac joints. No erosion or s ubchondral edema is seen in the visualized portion of the sacroiliac joints. IMPRESSION: No evidence of canal stenosis or nerve root impingement in the lumbar spine Right posterior annular fissure in the L4-5 disc This document is electronically signed by Wili Zavala MD., Feb 21 2019 06:32:19 PM ET
== END 2019-02-21 08:56 | disposition home or self-care (01) ==
LOC: US 08:55
PROVIDERS: ATTEND Anesthesiology
DX: M51.26 Other intervertebral disc displacement, lumbar region (principal); M48.061 Spinal stenosis, lumbar region without neurogenic claudication; M25.552 Pain in left hip; M25.551 Pain in right hip; M46.1 Sacroiliitis, not elsewhere classified; R92.8 Other abnormal and inconclusive findings on diagnostic imaging of breast; I10 Essential (primary) hypertension; Z90.710 Acquired absence of both cervix and uterus
CPT/HCPCS: 72148

== ENCOUNTER 2019-03-14 08:22 | Outpatient (CLI) | payer MEDICARE | END 2019-03-14 08:23 | disposition home or self-care (01) | LOC: LAB 08:22 | PROVIDERS: ATTEND Internal Medicine | DX: E11.9 Type 2 diabetes mellitus without complications (principal); I10 Essential (primary) hypertension; Z90.710 Acquired absence of both cervix and uterus | CPT/HCPCS: 36415; 83036 ==

== ENCOUNTER 2019-07-06 09:54 | Emergency (ER) | payer MEDICARE ==
[2019-07-06 10:07] VITALS: BP 151/93
[2019-07-06] MEDS ORDERED: IPRATROPIUM/ALBUTEROL SULFATE 3 ML AMPUL.NEB IH ONE (10:35)
--- NOTE | 2019-07-06 10:40 | XRay Report ---
CHEST 1 VIEW INDICATION: Chest Pain. COMPARISON: 07/04/2017 FINDINGS: Support devices: None. Heart: Within normal limits. Lungs/Pleura: No acute air space or interstitial disease. Additional findings: None. IMPRESSION: No acute findings. Signer Name: Luis Felipe Lozano Jr, MD Signed: 07/06/2019 10:35 AM Workstation Name: [id number]
--- NOTE | 2019-07-06 10:44 | Emergency Department Report ---
ED General Adult HPI - General Chief complaint: Dyspnea/Respdistress Stated complaint: ELIZABET/CHEST PAIN Time Seen by Provider: 07/06/19 10:03 Source: patient Mode of arrival: Ambulatory Limitations: No Limitations - History of Present Illness Initial comments: Is a 49-year-old female who states that she has COPD. She called the ambulance out to her residence a few days ago here and she received a breathing treatment but declined transport as she was improved. Today she presents to the emergency department with recurrent symptoms of wheezing, cough occasionally productive sputum. She also states that she has chronic back pain. Had no fever or chills. She occasionally has chest soreness when she coughs but was denies any chest pain pressure or tightness. The patient attributes her symptoms to "fumes"in her home. However she does admit that she is still smoking. -: Gradual, week(s) Consistency: intermittent Improves with: none Worsens with: none Associated Symptoms: denies other symptoms, cough - Related Data Home Medications Medication Instructions Recorded Confirmed Last Taken hydroCHLOROthiazide [HCTZ] 25 mg PO QDAY 06/21/13 11/05/14 11/04/14 Aspirin [Aspirin BABY CHEW TAB] 81 mg PO QDAY 06/29/14 11/05/14 11/04/14 Citalopram Hydrobromide [celeXA] 20 mg PO DAILY 11/05/14 11/05/14 11/04/14 Losartan [Cozaar] 25 mg PO QDAY 11/05/14 11/05/14 11/04/14 Naproxen [Naprosyn TAB] 500 mg PO DAILY 11/05/14 11/05/14 11/05/14 Previous Rx's Medication Instructions Recorded Last Taken Type Potassium Chloride 10 meq PO QDAY #30 capsule.er 11/06/14 Unknown Rx traMADol [Ultram] 50 mg PO Q6HR PRN #20 tablet 02/06/16 Unknown Rx Ciprofloxacin HCl [Ciprofloxacin 500 mg PO Q12HR #14 tab 04/13/17 Unknown Rx TAB] metroNIDAZOLE [Flagyl TAB] 500 mg PO Q12HR #14 tab 04/13/17 Unknown Rx oxyCODONE /ACETAMINOPHEN [Percocet 1 tab PO Q6HR PRN #7 tablet 04/13/17 Unknown Rx 5/325 mg] Albuterol Sulfate [Proair 90 mcg IH Q4HR PRN #1 aer.pow.ba 07/04/17 Unknown Rx Respiclick] predniSONE [Deltasone] 20 mg PO QDAY #8 tab 07/04/17 Unknown Rx Gabapentin [Neurontin] 300 mg PO Q8H PRN #90 capsule 03/04/18 Unknown Rx HYDROcodone/ACETAMINOPHEN 1 each PO Q6HR PRN #12 tablet 03/04/18 Unknown Rx [Hydrocodon-Acetaminophen 5-325] Losartan/Hydrochlorothiazide 1 each PO DAILY #30 tablet 03/04/18 Unknown Rx [Losartan-Hctz 100-25 mg Tab] Meloxicam [Mobic] 7.5 mg PO BID #12 tablet 03/04/18 Unknown Rx amLODIPine [Norvasc] 10 mg PO DAILY #30 tab 03/04/18 Unknown Rx ALBUTEROL NEB's [Proventil 0.083% 2.5 mg IH TID PRN #90 neb 07/06/19 Unknown Rx NEBS] Albuterol Sulfate [Proventil Hfa] 6.7 gm IH Q4H PRN #1 hfa.aer.ad 07/06/19 Unknown Rx Azithromycin [Zithromax Z-DIEGO] 250 mg PO DAILY #6 tab 07/06/19 Unknown Rx predniSONE [Deltasone] 40 mg PO QDAY #14 tab 07/06/19 Unknown Rx Allergies Allergy/AdvReac Type Severity Reaction Status Date / Time lisinopril Allergy Angioedema Verified 04/12/17 23:12 tramadol Allergy Rash Verified 04/12/17 23:12 ED Review of Systems ROS: Stated complaint: ELIZABET/CHEST PAIN Other details as noted in HPI Constitutional: denies: chills, fever Eyes: denies: eye pain, eye discharge, vision change ENT: denies: ear pain, throat pain Respiratory: cough, wheezing Cardiovascular: denies: chest pain, palpitations Endocrine: no symptoms reported Gastrointestinal: denies: abdominal pain, nausea, diarrhea Genitourinary: denies: urgency, dysuria, discharge Musculoskeletal: back pain (chronic). denies: joint swelling, arthralgia Skin: denies: rash, lesions Neurological: denies: headache, weakness, paresthesias Psychiatric: denies: anxiety, depression Hematological/Lymphatic: denies: easy bleeding, easy bruising ED Past Medical Hx - Past Medical History Previous Medical History?: Yes Hx Hypertension: Yes Hx CVA: Yes Hx Arthritis: Yes Hx Psychiatric Treatment: Yes (depression) Hx COPD: Yes - Surgical History Past Surgical History?: Yes Hx Pacemaker: No Additional Surgical History: c4 & c5. anal-vaginal fistula repair. colostomy/reversal. x1. lymph nodes removed. laparoscopic hysterectomy - Social History Smoking Status: Current Every Day Smoker Substance Use Type: None - Medications Home Medications: Home Medications Medication Instructions Recorded Confirmed Last Taken Type hydroCHLOROthiazide [HCTZ] 25 mg PO QDAY 06/21/13 11/05/14 11/04/14 History Aspirin [Aspirin BABY CHEW TAB] 81 mg PO QDAY 06/29/14 11/05/14 11/04/14 History Citalopram Hydrobromide [celeXA] 20 mg PO DAILY 11/05/14 11/05/14 11/04/14 History Losartan [Cozaar] 25 mg PO QDAY 11/05/14 11/05/14 11/04/14 History Naproxen [Naprosyn TAB] 500 mg PO DAILY 11/05/14 11/05/14 11/05/14 History Potassium Chloride 10 meq PO QDAY #30 capsule.er 11/06/14 Unknown Rx traMADol [Ultram] 50 mg PO Q6HR PRN #20 tablet 02/06/16 Unknown Rx Ciprofloxacin HCl [Ciprofloxacin 500 mg PO Q12HR #14 tab 04/13/17 Unknown Rx TAB] metroNIDAZOLE [Flagyl TAB] 500 mg PO Q12HR #14 tab 04/13/17 Unknown Rx oxyCODONE /ACETAMINOPHEN [Percocet 1 tab PO Q6HR PRN #7 tablet 04/13/17 Unknown Rx 5/325 mg] Albuterol Sulfate [Proair 90 mcg IH Q4HR PRN #1 aer.pow.ba 07/04/17 Unknown Rx Respiclick] predniSONE [Deltasone] 20 mg PO QDAY #8 tab 07/04/17 Unknown Rx Gabapentin [Neurontin] 300 mg PO Q8H PRN #90 capsule 03/04/18 Unknown Rx HYDROcodone/ACETAMINOPHEN 1 each PO Q6HR PRN #12 tablet 03/04/18 Unknown Rx [Hydrocodon-Acetaminophen 5-325] Losartan/Hydrochlorothiazide 1 each PO DAILY #30 tablet 03/04/18 Unknown Rx [Losartan-Hctz 100-25 mg Tab] Meloxicam [Mobic] 7.5 mg PO BID #12 tablet 03/04/18 Unknown Rx amLODIPine [Norvasc] 10 mg PO DAILY #30 tab 03/04/18 Unknown Rx ALBUTEROL NEB's [Proventil 0.083% 2.5 mg IH TID PRN #90 neb 07/06/19 Unknown Rx NEBS] Albuterol Sulfate [Proventil Hfa] 6.7 gm IH Q4H PRN #1 hfa.aer.ad 07/06/19 Unknown Rx Azithromycin [Zithromax Z-DIEGO] 250 mg PO DAILY #6 tab 07/06/19 Unknown Rx predniSONE [Deltasone] 40 mg PO QDAY #14 tab 07/06/19 Unknown Rx ED Physical Exam - General Limitations: No Limitations General appearance: alert, in no apparent distress - Head Head exam: Present: atraumatic, normocephalic - Eye Eye exam: Present: normal appearance - ENT ENT exam: Present: mucous membranes moist - Neck Neck exam: Present: normal inspection - Respiratory Respiratory exam: Present: prolonged expiratory. Absent: respiratory distress, wheezes, rales, rhonchi, stridor, accessory muscle use - Cardiovascular Cardiovascular Exam: Present: regular rate, normal rhythm. Absent: systolic murmur, diastolic murmur, rubs, gallop - GI/Abdominal GI/Abdominal exam: Present: soft, normal bowel sounds. Absent: distended, tenderness, guarding, rebound, rigid - Extremities Exam Extremities exam: Present: normal inspection, normal capillary refill. Absent: pedal edema, joint swelling, calf tenderness - Back Exam Back exam: Present: normal inspection - Neurological Exam Neurological exam: Present: alert, oriented X3, CN II-XII intact. Absent: motor sensory deficit (no acute deficit) - Psychiatric Psychiatric exam: Present: normal affect, normal mood - Skin Skin exam: Present: warm, dry, intact, normal color. Absent: rash ED Course Vital Signs 07/06/19 09:58 Temperature 98.0 F Pulse Rate 102 H Respiratory 22 Rate Blood Pressure 151/93 O2 Sat by Pulse 98 Oximetry - Reevaluation(s) Reevaluation #1: Patient will be given prednisone, nebs. She is appropriate for outpatient follow-up. Smoking cessation has been discussed. She is appropriate for outpatient management. 07/06/19 10:42 07/06/19 10:44 ED Medical Decision Making - EKG Data -: EKG Interpreted by Me EKG shows normal: sinus rhythm, axis (left AXIS deviation), intervals, QRS complexes, ST-T waves Rate: normal - EKG Data Interpretation: no acute changes - Radiology Data Radiology results: report reviewed, image reviewed No acute process Critical care attestation.: If time is entered above; I have spent that time in minutes in the direct care of this critically ill patient, excluding procedure time. ED Disposition Clinical Impression: COPD exacerbation Disposition: - TO HOME OR SELFCARE Is pt being admited?: No Does the pt Need Aspirin: No Condition: Stable Instructions: Chronic Obstructive Pulmonary Disease (ED) Additional Instructions: All appear primary care physician. Return to the emergency department any acute change or worsening symptoms. Prescriptions: predniSONE [Deltasone] 40 mg PO QDAY #14 tab ALBUTEROL NEB's [Proventil 0.083% NEBS] 2.5 mg IH TID PRN #90 neb PRN Reason: Wheezing Albuterol Sulfate [Proventil Hfa] 6.7 gm IH Q4H PRN #1 hfa.aer.ad PRN Reason: wheezing Azithromycin [Zithromax Z-DIEGO] 250 mg PO DAILY #6 tab Referrals: usual, primary care [Other] - 2-3 Days Time of Disposition: 10:54
[2019-07-06] MEDS ORDERED: predniSONE 20 MG TAB PO ONE (10:45)
[2019-07-06] MEDS ORDERED: HYDROcodone/ACETAMINOPHEN 5-325 MG TAB PO ONE (10:45)
[2019-07-06 11:11] LABS: Basophils # (Auto) 0.1 K/mm3 (0.0-0.1); Basophils % (Auto) 0.8 % (0.0-1.8); Hematocrit 45.1 % (30.3-42.9); Lymphocytes % (Auto) 21.8 % (13.4-35.0); Mean Corpuscular HGB Conc 33 % (30-34); Mean Corpuscular Volume 88 fl (79-97); Monocytes # (Auto) 0.4 K/mm3 (0.0-0.8); Monocytes % (Auto) 4.5 % (0.0-7.3); Platelet Count 249 K/mm3 (140-440); Red Blood Count 5.15 M/mm3 (3.65-5.03); Red Cell Distribution Width 14.3 % (13.2-15.2)
[2019-07-06 11:35] LABS: BUN/Creatinine Ratio 14; Blood Urea Nitrogen 13 mg/dL (7-17); Calcium 9.2 mg/dL (8.4-10.2); Hemolysis Index 27
== END 2019-07-06 11:24 | disposition home or self-care (01) ==
LOC: ED 09:54
DX: J44.1 Chronic obstructive pulmonary disease with (acute) exacerbation (principal); I10 Essential (primary) hypertension; M19.90 Unspecified osteoarthritis, unspecified site; F32.9 Major depressive disorder, single episode, unspecified; F17.200 Nicotine dependence, unspecified, uncomplicated; Z86.73 Personal history of transient ischemic attack (TIA), and cerebral infarction without residual deficits
CPT/HCPCS: 36415; 71045; 80048; 84484; 85025; 93005; 93010; 94640; 99284; J7512; 94644

== ENCOUNTER 2019-08-10 09:13 | Outpatient (CLI) | payer MEDICARE ==
[2019-08-10 12:34] LABS: Basophils % (Auto) 0.5 % (0.0-1.8); Eosinophils # (Auto) 0.1 K/mm3 (0.0-0.4); Eosinophils % (Auto) 1.5 % (0.0-4.3); Hematocrit 46.3 % (30.3-42.9); Hemoglobin 14.9 gm/dl (10.1-14.3); Lymphocytes # (Auto) 1.9 K/mm3 (1.2-5.4); Lymphocytes % (Auto) 23.9 % (13.4-35.0); Mean Corpuscular HGB Conc 32 % (30-34); Mean Corpuscular Volume 89 fl (79-97); Monocytes # (Auto) 0.5 K/mm3 (0.0-0.8); Monocytes % (Auto) 5.6 % (0.0-7.3); Red Blood Count 5.22 M/mm3 (3.65-5.03); Red Cell Distribution Width 14.6 % (13.2-15.2)
[2019-08-10 12:44] LABS: Alanine Aminotransferase 11 units/L (7-56); Albumin 3.9 g/dL (3.9-5); BUN/Creatinine Ratio 13; Blood Urea Nitrogen 12 mg/dL (7-17); Calcium 8.9 mg/dL (8.4-10.2); Chol/HDL Ratio 2.13 %; HDL Cholesterol 68 mg/dL (40-59); Hemolysis Index 15; LDL Cholesterol,Direct 74 mg/dL (50-130)
[2019-08-10 13:56] LABS: Platelet Count 296 K/mm3 (140-440)
[2019-08-14 14:43] LABS: Vitamin D, 25-OH, D2 <4 ng/mL
== END 2019-08-10 09:14 | disposition home or self-care (01) ==
LOC: LAB 09:13
PROVIDERS: ATTEND Internal Medicine
DX: Z13.21 Encounter for screening for nutritional disorder (principal); E78.5 Hyperlipidemia, unspecified; E11.9 Type 2 diabetes mellitus without complications; E55.9 Vitamin D deficiency, unspecified; I10 Essential (primary) hypertension; Z88.8 Allergy status to other drugs, medicaments and biological substances
CPT/HCPCS: 36415; 80053; 80061; 82306; 82607; 83036; 84443; 85025

== ENCOUNTER 2019-09-22 19:27 | Emergency (ER) | payer MEDICARE ==
[2019-09-22 20:19] VITALS: BP 149/88
--- NOTE | 2019-09-23 00:49 | Emergency Department Report ---
[facility] Chief Complaint: Eye Problems Stated Complaint: PINK EYE Time Seen by Provider: 09/23/19 00:44 Duration: 4 Days Side: Left Severity: mild Symptoms: Yes Eye Itching, Yes Eye Redness, Yes Purulent Drainage, Yes H/O Allergic Rhinitis, Yes Headache, No Contact Lens Use Other History: 49-year-old -[place] female presents to the emergency room complaining of left eye redness swelling and itchiness 4 days. Patient feels she has conjunctivitis. Patient denies any sick contact denies any pets. 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 Patient states is now having a headache. Patient is taking nothing for pain. Patient does report a history of sinusitis. ED Review of Systems ROS: Stated complaint: PINK EYE Other details as noted in HPI Comment: All other systems reviewed and negative ED Past Medical Hx - Past Medical History Previous Medical History?: Yes Hx Hypertension: Yes Hx CVA: Yes Hx Arthritis: Yes Hx Psychiatric Treatment: Yes (depression) Hx COPD: Yes - Surgical History Past Surgical History?: Yes Hx Pacemaker: No Additional Surgical History: c4 & c5. anal-vaginal fistula repair. colostomy/reversal. x1. lymph nodes removed. laparoscopic hysterectomy - Social History Smoking Status: Current Every Day Smoker Substance Use Type: Alcohol - Medications Home Medications: Home Medications Medication Instructions Recorded Confirmed Last Taken Type hydroCHLOROthiazide [HCTZ] 25 mg PO QDAY 06/21/13 11/05/14 11/04/14 History Aspirin [Aspirin BABY CHEW TAB] 81 mg PO QDAY 06/29/14 11/05/14 11/04/14 History Citalopram Hydrobromide [celeXA] 20 mg PO DAILY 11/05/14 11/05/14 11/04/14 History Losartan [Cozaar] 25 mg PO QDAY 11/05/14 11/05/14 11/04/14 History Naproxen [Naprosyn TAB] 500 mg PO DAILY 11/05/14 11/05/14 11/05/14 History Potassium Chloride 10 meq PO QDAY #30 capsule.er 11/06/14 Unknown Rx traMADoL [Ultram] 50 mg PO Q6HR PRN #20 tablet 02/06/16 Unknown Rx Ciprofloxacin HCl [Ciprofloxacin 500 mg PO Q12HR #14 tab 04/13/17 Unknown Rx TAB] metroNIDAZOLE [Flagyl TAB] 500 mg PO Q12HR #14 tab 04/13/17 Unknown Rx oxyCODONE /ACETAMINOPHEN [Percocet 1 tab PO Q6HR PRN #7 tablet 04/13/17 Unknown Rx 5/325 mg] Albuterol Sulfate [Proair 90 mcg IH Q4HR PRN #1 aer.pow.ba 07/04/17 Unknown Rx Respiclick] predniSONE [Deltasone] 20 mg PO QDAY #8 tab 07/04/17 Unknown Rx Gabapentin 300 mg PO Q8H PRN #90 capsule 03/04/18 Unknown Rx HYDROcodone/ACETAMINOPHEN 1 each PO Q6HR PRN #12 tablet 03/04/18 Unknown Rx [Hydrocodon-Acetaminophen 5-325] Losartan/Hydrochlorothiazide 1 each PO DAILY #30 tablet 03/04/18 Unknown Rx [Losartan-Hctz 100-25 mg Tab] Meloxicam [Mobic] 7.5 mg PO BID #12 tablet 03/04/18 Unknown Rx amLODIPine [Norvasc] 10 mg PO DAILY #30 tab 03/04/18 Unknown Rx ALBUTEROL NEB's [Proventil 0.083% 2.5 mg IH TID PRN #90 neb 07/06/19 Unknown Rx NEBS] Albuterol Sulfate [Proventil Hfa] 6.7 gm IH Q4H PRN #1 hfa.aer.ad 07/06/19 Unknown Rx Azithromycin [Zithromax Z-DIEGO] 250 mg PO DAILY #6 tab 07/06/19 Unknown Rx predniSONE [Deltasone] 40 mg PO QDAY #14 tab 07/06/19 Unknown Rx Erythromycin [Erythromycin Ophth 1 strip OP QID 10 Days #1 tube 09/23/19 Unknown Rx Oint] [facility] Exam - Exam General: Vital signs noted. No distress. Alert and acting appropriately. Eye Exam: Left Injection, Left Purulent Discharge HEENT: Yes Nasal Congestion, No Pharyngeal Erythema Remainder of HEENT: Normal Lungs: Yes Clear Lung Sounds ED Course Vital Signs 09/22/19 20:17 Temperature 98.0 F Pulse Rate 68 Respiratory 20 Rate Blood Pressure 149/88 O2 Sat by Pulse 97 Oximetry ED Medical Decision Making - Medical Decision Making 49-year-old -[place] female presents to the emergency room complaining of left eye redness swelling and itchiness 4 days. Patient feels she has c onjunctivitis. Patient denies any sick contact denies any pets. 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 Patient states is now having a headache. Patient is taking nothing for pain. Patient does report a history of sinusitis. Left eye conjunctivitis. Patient placed in erythromycin ophthalmic ointment for 10 days. Patient's follow-up with her primary care provider for symptoms persist or gets worse. Critical care attestation.: If time is entered above; I have spent that time in minutes in the direct care of this critically ill patient, excluding procedure time. ED Disposition Clinical Impression: Conjunctivitis Disposition: DC-01 TO HOME OR SELFCARE Is pt being admited?: No Does the pt Need Aspirin: No Condition: Stable Instructions: Conjunctivitis (ED) Prescriptions: Erythromycin [Erythromycin Ophth Oint] 1 strip OP QID 10 Days #1 tube Referrals: PRIMARY MD ANUEL [Primary Care Provider] - 3-5 Days GINA MACKEY MD [Staff Physician] - 3-5 Days LOVE GOMEZ MD [Staff Physician] - 3-5 Days Forms: Work/School Release Form(ED)
== END 2019-09-23 00:58 | disposition home or self-care (01) ==
LOC: ED 19:27
DX: H10.89 Other conjunctivitis (principal); I10 Essential (primary) hypertension; F32.89 Other specified depressive episodes; J44.9 Chronic obstructive pulmonary disease, unspecified; M19.90 Unspecified osteoarthritis, unspecified site; F17.200 Nicotine dependence, unspecified, uncomplicated; Z90.710 Acquired absence of both cervix and uterus; Z86.73 Personal history of transient ischemic attack (TIA), and cerebral infarction without residual deficits; Z98.890 Other specified postprocedural states; Z79.899 Other long term (current) drug therapy; Z88.6 Allergy status to analgesic agent
CPT/HCPCS: 99282

== ENCOUNTER 2019-11-22 08:31 | Outpatient (CLI) | payer MEDICARE ==
[2019-11-22 09:37] LABS: Blood Urea Nitrogen 15 mg/dL (7-17)
--- NOTE | 2019-11-22 13:50 | Cat Scan Report ---
CT abdomen pelvis w con INDICATION: R10.33Periumbilical pain/R10.84Generalized abdominal pain. TECHNIQUE: All CT scans at this location are performed using the following dose modulation technique: Automated exposure control. CONTRAST: Omnipaque 300, 100 cc IV injection. COMPARISON: None available. CT ABDOMEN: Evaluation the parenchymal organs demonstrates moderate bilateral renal scarring. The rem aining parenchymal organs are unremarkable in appearance. Negative for abdominal mass, fluid or infla mmation. The bowel is not dilated or thickened. A fat-containing umbilical hernia is moderate. An associated fat-containing right ventral hernia is a lso present. CT PELVIS: Small physiologic ovarian cysts. One larger cyst on the right measures 4.2 cm. A small mya unt of pelvic free fluid is present. IMPRESSION: 1. 4.2 cm right ovarian cyst with small amount of free fluid may represent partial rupture. 2. Fat-containing umbilical/right ventral hernia. Signer Name: Marbin Duran MD Signed: 11/22/2019 1:46 PM Workstation Name: [id number]
== END 2019-11-22 08:32 | disposition home or self-care (01) ==
LOC: CT 08:31
DX: K42.9 Umbilical hernia without obstruction or gangrene (principal); K43.9 Ventral hernia without obstruction or gangrene; N83.292 Other ovarian cyst, left side; N83.291 Other ovarian cyst, right side
CPT/HCPCS: 36415; 74177; 82565; 84520; Q9967

== ENCOUNTER 2019-12-04 16:44 | Emergency (ER) | payer MEDICARE ==
--- NOTE | 2019-12-04 18:48 | Emergency Department Report ---
Blank Doc - Documentation Documentation: 49-year-old female that presents with cp and sob. This initial assessment/diagnostic orders/clinical plan/treatment(s) is/are subject to change based on patient's health status, clinical progression and re- assessment by fellow clinical providers in the ED. Further treatment and workup at subsequent clinical providers discretion. Patient/guardians urged not to elope from the ED as their condition may be serious if not clinically assessed and managed. Initial orders include: 1- Patient sent to MAIN ED for further evaluation and treatment 2- cardiac workup
[2019-12-04 19:30] LABS: Basophils # (Auto) 0.1 K/mm3 (0.0-0.1); Basophils % (Auto) 0.7 % (0.0-1.8); Eosinophils # (Auto) 0.1 K/mm3 (0.0-0.4); Eosinophils % (Auto) 1.6 % (0.0-4.3); Hematocrit 45.3 % (30.3-42.9); Hemoglobin 14.9 gm/dl (10.1-14.3); Lymphocytes # (Auto) 2.1 K/mm3 (1.2-5.4); Lymphocytes % (Auto) 25.8 % (13.4-35.0); Mean Corpuscular HGB Conc 33 % (30-34); Mean Corpuscular Volume 89 fl (79-97); Monocytes # (Auto) 0.6 K/mm3 (0.0-0.8); Monocytes % (Auto) 7.3 % (0.0-7.3); Platelet Count 289 K/mm3 (140-440); Red Blood Count 5.11 M/mm3 (3.65-5.03); Red Cell Distribution Width 14.7 % (13.2-15.2)
[2019-12-04 19:41] LABS: INR 0.91 (0.87-1.13)
[2019-12-04 19:42] LABS: Partial Thromboplastin Time 27.2 Sec. (24.2-36.6)
[2019-12-04 19:51] LABS: Alanine Aminotransferase 14 units/L (7-56); BUN/Creatinine Ratio 14; Blood Urea Nitrogen 13 mg/dL (7-17); Calcium 9.5 mg/dL (8.4-10.2); Hemolysis Index 6
--- NOTE | 2019-12-04 20:46 | XRay Report ---
CHEST 2 VIEWS INDICATION / CLINICAL INFORMATION: Chest Pain. COMPARISON: None available. FINDINGS: SUPPORT DEVICES: None. HEART / MEDIASTINUM: No significant abnormality. LUNGS / PLEURA: No significant pulmonary or pleural abnormality. No pneumothorax. ADDITIONAL FINDINGS: No significant additional findings. IMPRESSION: 1. No acute findings. Signer Name: Delfin Doll MD Signed: 12/04/2019 8:41 PM Workstation Name: [id number]
--- NOTE | 2019-12-04 21:36 | Emergency Department Report ---
ED Chest Pain HPI - General Chief Complaint: Chest Pain Stated Complaint: CHEST PAIN Time Seen by Provider: 12/04/19 18:47 Source: patient Mode of arrival: Ambulatory Limitations: No Limitations - History of Present Illness Initial Comments: Patient is 49 years old female with history of COPD, hypertension and spinal stenosis. Patient presented to the ER complaining of sudden onset of chest pain started this afternoon. Patient described her pain as substernal with radiation to her back. Patient stated that it felt like gas. Patient stated that it has improved significantly now and it is 3 out of 10. Patient denies any shortness of breath except for her usual from COPD. She also denied any fever chills or cough. Patient also denied any nausea vomiting. Patient stated that she had endoscopy yesterday and she was told that it was normal. MD Complaint: chest pain - Related Data Home Medications Medication Instructions Recorded Confirmed Last Taken hydroCHLOROthiazide [HCTZ] 25 mg PO QDAY 06/21/13 11/05/14 11/04/14 Aspirin [Aspirin BABY CHEW TAB] 81 mg PO QDAY 06/29/14 11/05/14 11/04/14 Citalopram Hydrobromide [celeXA] 20 mg PO DAILY 11/05/14 11/05/14 11/04/14 Losartan [Cozaar] 25 mg PO QDAY 11/05/14 11/05/14 11/04/14 Naproxen [Naprosyn TAB] 500 mg PO DAILY 11/05/14 11/05/14 11/05/14 Previous Rx's Medication Instructions Recorded Last Taken Type Potassium Chloride 10 meq PO QDAY #30 capsule.er 11/06/14 Unknown Rx traMADoL [Ultram] 50 mg PO Q6HR PRN #20 tablet 02/06/16 Unknown Rx Ciprofloxacin HCl [Ciprofloxacin 500 mg PO Q12HR #14 tab 04/13/17 Unknown Rx TAB] metroNIDAZOLE [Flagyl TAB] 500 mg PO Q12HR #14 tab 04/13/17 Unknown Rx oxyCODONE /ACETAMINOPHEN [Percocet 1 tab PO Q6HR PRN #7 tablet 04/13/17 Unknown Rx 5/325 mg] Albuterol Sulfate [Proair 90 mcg IH Q4HR PRN #1 aer.pow.ba 07/04/17 Unknown Rx Respiclick] predniSONE [Deltasone] 20 mg PO QDAY #8 tab 07/04/17 Unknown Rx Gabapentin 300 mg PO Q8H PRN #90 capsule 03/04/18 Unknown Rx HYDROcodone/ACETAMINOPHEN 1 each PO Q6HR PRN #12 tablet 03/04/18 Unknown Rx [Hydrocodon-Acetaminophen 5-325] Losartan/Hydrochlorothiazide 1 each PO DAILY #30 tablet 03/04/18 Unknown Rx [Losartan-Hctz 100-25 mg Tab] Meloxicam [Mobic] 7.5 mg PO BID #12 tablet 03/04/18 Unknown Rx amLODIPine [Norvasc] 10 mg PO DAILY #30 tab 03/04/18 Unknown Rx ALBUTEROL NEB's [Proventil 0.083% 2.5 mg IH TID PRN #90 neb 07/06/19 Unknown Rx NEBS] Albuterol Sulfate [Proventil Hfa] 6.7 gm IH Q4H PRN #1 hfa.aer.ad 07/06/19 Unknown Rx Azithromycin [Zithromax Z-DIEGO] 250 mg PO DAILY #6 tab 07/06/19 Unknown Rx predniSONE [Deltasone] 40 mg PO QDAY #14 tab 07/06/19 Unknown Rx Erythromycin [Erythromycin Ophth 1 strip OP QID 10 Days #1 tube 09/23/19 Unknown Rx Oint] Allergies Allergy/AdvReac Type Severity Reaction Status Date / Time lisinopril Allergy Angioedema Verified 04/12/17 23:12 tramadol Allergy Rash Verified 04/12/17 23:12 Heart Score - HEART Score History: Moderately suspicious EKG: Non-specific Age: 45-65 Risk factors: 1-2 risk factors Troponin: < normal limit HEART Score: 4 - Critical Actions Critical Actions: 4-6 pts:12-16.6% risk of adverse cardiac event. Should be admitted ED Review of Systems ROS: Stated complaint: CHEST PAIN Other details as noted in HPI Comment: All other systems reviewed and negative Constitutional: denies: chills, fever Respiratory: denies: cough, orthopnea, shortness of breath, SOB with exertion, SOB at rest Cardiovascular: chest pain. denies: palpitations, dyspnea on exertion, orthopnea Gastrointestinal: denies: abdominal pain, nausea, vomiting Genitourinary: denies: urgency, dysuria, frequency, hematuria, discharge, abnormal menses Musculoskeletal: denies: back pain Neurological: denies: headache, weakness, numbness, paresthesias, confusion, abnormal gait ED Past Medical Hx - Past Medical History Hx Hypertension: Yes Hx CVA: Yes (RIGHT-SIDED WEAKNESS) Hx Arthritis: Yes Hx Psychiatric Treatment: Yes (depression) Hx COPD: Yes Additional medical history: SPINAL STENOSIS - Surgical History Hx Pacemaker: No Additional Surgical History: c4 & c5. anal-vaginal fistula repair. colostomy/reversal. x1. lymph nodes removed. laparoscopic hysterectomy - Social History Smoking Status: Current Every Day Smoker Substance Use Type: Alcohol - Medications Home Medications: Home Medications Medication Instructions Recorded Confirmed Last Taken Type hydroCHLOROthiazide [HCTZ] 25 mg PO QDAY 06/21/13 11/05/14 11/04/14 History Aspirin [Aspirin BABY CHEW TAB] 81 mg PO QDAY 06/29/14 11/05/14 11/04/14 History Citalopram Hydrobromide [celeXA] 20 mg PO DAILY 11/05/14 11/05/14 11/04/14 His tory Losartan [Cozaar] 25 mg PO QDAY 11/05/14 11/05/14 11/04/14 History Naproxen [Naprosyn TAB] 500 mg PO DAILY 11/05/14 11/05/14 11/05/14 History Potassium Chloride 10 meq PO QDAY #30 capsule.er 11/06/14 Unknown Rx traMADoL [Ultram] 50 mg PO Q6HR PRN #20 tablet 02/06/16 Unknown Rx Ciprofloxacin HCl [Ciprofloxacin 500 mg PO Q12HR #14 tab 04/13/17 Unknown Rx TAB] metroNIDAZOLE [Flagyl TAB] 500 mg PO Q12HR #14 tab 04/13/17 Unknown Rx oxyCODONE /ACETAMINOPHEN [Percocet 1 tab PO Q6HR PRN #7 tablet 04/13/17 Unknown Rx 5/325 mg] Albuterol Sulfate [Proair 90 mcg IH Q4HR PRN #1 aer.pow.ba 07/04/17 Unknown Rx Respiclick] predniSONE [Deltasone] 20 mg PO QDAY #8 tab 07/04/17 Unknown Rx Gabapentin 300 mg PO Q8H PRN #90 capsule 03/04/18 Unknown Rx HYDROcodone/ACETAMINOPHEN 1 each PO Q6HR PRN #12 tablet 03/04/18 Unknown Rx [Hydrocodon-Acetaminophen 5-325] Losartan/Hydrochlorothiazide 1 each PO DAILY #30 tablet 03/04/18 Unknown Rx [Losartan-Hctz 100-25 mg Tab] Meloxicam [Mobic] 7.5 mg PO BID #12 tablet 03/04/18 Unknown Rx amLODIPine [Norvasc] 10 mg PO DAILY #30 tab 03/04/18 Unknown Rx ALBUTEROL NEB's [Proventil 0.083% 2.5 mg IH TID PRN #90 neb 07/06/19 Unknown Rx NEBS] Albuterol Sulfate [Proventil Hfa] 6.7 gm IH Q4H PRN #1 hfa.aer.ad 07/06/19 Unknown Rx Azithromycin [Zithromax Z-DIEGO] 250 mg PO DAILY #6 tab 07/06/19 Unknown Rx predniSONE [Deltasone] 40 mg PO QDAY #14 tab 07/06/19 Unknown Rx Erythromycin [Erythromycin Ophth 1 strip OP QID 10 Days #1 tube 09/23/19 Unknown Rx Oint] ED Physical Exam - General Limitations: No Limitations General appearance: alert, in no apparent distress - Head Head exam: Present: atraumatic, normocephalic, normal inspection - Eye Eye exam: Present: normal appearance, PERRL - ENT ENT exam: Present: normal exam, normal orophraynx, mucous membranes moist - Neck Neck exam: Present: normal inspection, full ROM. Absent: tenderness, meningismus, lymphadenopathy, thyromegaly - Respiratory Respiratory exam: Present: normal lung sounds bilaterally - Cardiovascular Cardiovascular Exam: Present: regular rate, normal rhythm, normal heart sounds - GI/Abdominal GI/Abdominal exam: Present: soft, normal bowel sounds. Absent: distended, tenderness, guarding, rebound, rigid, organomegaly, mass, bruit, pulsatile mass, hernia - Extremities Exam Extremities exam: Present: normal inspection, full ROM, normal capillary refill. Absent: pedal edema, calf tenderness - Back Exam Back exam: Present: normal inspection, full ROM. Absent: CVA tenderness (R), CVA tenderness (L) - Neurological Exam Neurological exam: Present: alert, oriented X3, CN II-XII intact, normal gait, reflexes normal. Absent: motor sensory deficit - Psychiatric Psychiatric exam: Present: normal mood - Skin Skin exam: Present: warm, intact, normal color ED Course Vital Signs 12/04/19 12/04/19 12/04/19 18:47 20:56 21:00 Temperature 98.2 F Pulse Rate 80 66 71 Respiratory 18 10 L 13 Rate Blood Pressure 141/79 134/70 O2 Sat by Pulse 95 94 Oximetry 12/04/19 12/04/19 12/04/19 21:16 21:30 21:46 Temperature Pulse Rate 70 66 68 Respiratory 13 12 15 Rate Blood Pressure 134/70 134/70 134/70 O2 Sat by Pulse 99 95 94 Oximetry 12/04/19 12/04/19 22:00 22:16 Temperature Pulse Rate 69 68 Respiratory 12 12 Rate Blood Pressure 132/79 132/79 O2 Sat by Pulse 95 95 Oximetry CHRISTINA score - Christina Score Age > 65: (0) No Aspirin use within the Past 7 Days: (1) Yes 3 or more CAD Risk Factors: (0) No 2 or more Angina events in past 24 hrs: (0) No Known CAD with more than 50% Stenosis: (0) No Elevated Cardiac Markers: (1) Yes ST Deviation Greater than 0.5mm: (0) No CHRISTINA Score: 2 ED Medical Decision Making - Lab Data Result diagrams: 12/04/19 19:14 12/04/19 19:14 - EKG Data -: EKG Interpreted by Nc EKG shows normal: sinus rhythm Rate: normal - EKG Data Interpretation: no acute changes - Radiology Data Radiology results: report reviewed - Medical Decision Making Patient is 49 years old female with history of COPD, hypertension and spinal stenosis. Patient presented to the ER complaining of sudden onset of chest pain started this afternoon. Patient described her pain as substernal with radiation to her back. Patient stated that it felt like gas. Patient stated that it has improved significantly now and it is 3 out of 10. Patient denies any shortness of breath except for her usual from COPD. She also denied any fever chills or cough. Patient also denied any nausea vomiting. Patient stated that she had endoscopy yesterday and she was told that it was normal. EKG showed no ST elevation. Labs reviewed and is unremarkable including 2- troponin. Patient stated that her chest pain is completely resolved. Patient stated that she will go home and follow-up with her primary care physician. I strongly advised her to follow-up with her primary care physician for further management including but not limited to stress test. Patient advised to return to the ER if she develop any new symptoms. Critical care attestation.: If time is entered above; I have spent that time in minutes in the direct care of this critically ill patient, excluding procedure time. ED Disposition Clinical Impression: Chest pain Disposition: - TO HOME OR SELFCARE Is pt being admited?: No Condition: Stable Instructions: Chest Pain (ED) Referrals: PADMA NUÑEZ MD [Primary Care Provider] - 3-5 Days
[2019-12-05 00:32] VITALS: BP 118/71
== END 2019-12-05 00:32 | disposition home or self-care (01) ==
LOC: ED 16:44
DX: R07.9 Chest pain, unspecified (principal); J44.9 Chronic obstructive pulmonary disease, unspecified; I10 Essential (primary) hypertension; F17.200 Nicotine dependence, unspecified, uncomplicated; M19.90 Unspecified osteoarthritis, unspecified site; F32.9 Major depressive disorder, single episode, unspecified; Z88.8 Allergy status to other drugs, medicaments and biological substances; Z79.899 Other long term (current) drug therapy; Z90.710 Acquired absence of both cervix and uterus; Z98.890 Other specified postprocedural states
CPT/HCPCS: 36415; 71046; 80053; 83690; 84484; 84703; 85025; 85379; 85610; 85730; 93005; 93010

== ENCOUNTER 2020-08-27 11:00 | Outpatient (CLI) | payer MEDICARE | END 2020-08-27 11:01 | disposition home or self-care (01) | LOC: SLR 11:00 | PROVIDERS: ATTEND Otolaryngology | DX: G47.33 Obstructive sleep apnea (adult) (pediatric) (principal); R40.0 Somnolence | CPT/HCPCS: 95810 ==

== ENCOUNTER 2020-09-03 11:00 | Outpatient (CLI) | payer MEDICARE | END 2020-09-03 11:01 | disposition home or self-care (01) | LOC: SLR 11:00 | PROVIDERS: ATTEND Otolaryngology | DX: G47.33 Obstructive sleep apnea (adult) (pediatric) (principal); R40.0 Somnolence; E66.9 Obesity, unspecified | CPT/HCPCS: 95811 ==

== ENCOUNTER 2020-10-14 09:22 | Outpatient (CLI) | payer MEDICARE ==
--- NOTE | 2020-10-14 10:06 | Mammography Report ---
DIGITAL SCREENING MAMMOGRAM, 10/14/2020 CLINICAL INFORMATION / INDICATION: Routine screening mammography. SCREENING MAMMOGRAM TECHNIQUE: Digital bilateral 2D mammography was obtained in the craniocaudal and mediolateral obliqu e projections. COMPARISON: Prior mammograms 09/28/2019 and 09/26/2018 FINDINGS: Breast Density: The breasts are almost entirely fatty. No dominant mass, suspicious calcifications, or architectural distortion in either breast. There are stable benign-appearing calcifications in the left breast. There has been no significant ch noah compared with the prior examinations. IMPRESSION: No mammographic evidence of malignancy. Follow up recommendation: Routine yearly BI-RADS Category 2: Benign. A "normal" or negative report should not discourage follow up or biopsy of a clinically significant f inding. A written summary of these findings will be mailed to the patient. The patient will be entered into a mammography reporting system which will generate a reminder letter for the patient's next appointmen t at the appropriate interval. The [employer] recommends yearly mammograms starting at age 40 and continuing as l latoya as a woman is in good health. Breast MRI is recommended for women with an approximate 20-25% or greater lifetime risk of breast cancer, including women with a strong family history of breast or ova ang cancer or who have been treated for Hodgkin's disease. Signer Name: Abby Rodas MD Signed: 10/14/2020 10:01 AM Workstation Name: [email or web address]
== END 2020-10-14 09:23 | disposition home or self-care (01) ==
LOC: SPVWC 09:22
PROVIDERS: ATTEND Surgery
DX: Z12.31 Encounter for screening mammogram for malignant neoplasm of breast (principal); N64.89 Other specified disorders of breast
CPT/HCPCS: 77067

== ENCOUNTER 2020-11-20 07:12 | Outpatient (CLI) | payer MEDICARE ==
--- NOTE | 2020-11-20 08:55 | Fluoroscopy Report ---
Upper GI HISTORY: FUNCTIONAL DYSPEPSIA. Preoperative evaluation. Technique: Single and double contrast barium technique utilized to evaluate the esophagus, stomach, and duodenal C-loop. Findings: To begin the exam, swallowing was evaluated in the lateral position under direct fluorosco py. Swallowing was normal. No mucosal irregularity, mass, mass effect, or critical stenosis. There were no abnormal tertiary c ontractions as seen with dysmotility. No gastroesophageal reflux. Impression: Unremarkable exam. Fluoroscopic time: 1.3 minutes Number of fluoroscopic images: 17 Signer Name: Trae Keller MD Signed: 11/20/2020 8:51 AM Workstation Name: [id number]
== END 2020-11-20 07:13 | disposition home or self-care (01) ==
LOC: FLUORO 07:12
PROVIDERS: ATTEND Surgery
DX: K30 Functional dyspepsia (principal)
CPT/HCPCS: 74246

== ENCOUNTER 2020-12-19 11:22 | Outpatient (CLI) | payer MEDICARE ==
[2020-12-19 11:51] LABS: Creatinine,Urine 250.7 mg/dL (0.1-20.0)
[2020-12-19 11:53] LABS: Bilirubin,Urine NEG (Negative); Blood,Urine NEG (Negative); Color,Urine Yellow (Yellow); Mucus,Urine FEW /HPF
[2020-12-19 12:03] LABS: Microalbumin/Creatinine Ratio 216.1 ug/mg
== END 2020-12-19 11:23 | disposition home or self-care (01) ==
LOC: LAB 11:22
PROVIDERS: ATTEND Internal Medicine
DX: E11.9 Type 2 diabetes mellitus without complications (principal); N39.0 Urinary tract infection, site not specified
CPT/HCPCS: 81001; 82043; 87086

== ENCOUNTER 2021-01-15 07:33 | Outpatient (CLI) | payer MEDICARE ==
[2021-01-15] MEDS ORDERED: REGADENOSON 0.4 MG/5 ML INJ IV ONE (09:15)
[2021-01-15 10:49] VITALS: BP 139/84
--- NOTE | 2021-01-16 04:05 | Treadmill Report ---
DATE OF SERVICE: 01/15/2021 NUCLEAR STRESS TEST REFERRING PHYSICIAN: Hospitalist service. PROTOCOL: The patient was assessed in postoperative state, given 10 mCi of technetium at rest. The patient underwent rest imaging. The patient underwent Lexiscan stress test per standard protocol. At peak stress, the patient was given 26 mCi technetium 99m. Shortly thereafter, the patient underwent stress imaging. Raw imaging reveals mild GI artifact. No significant motion artifact. There is significant breast attenuation noted. Technically difficult study. INTERPRETATION: Technically very difficult study due to breast attenuation and grossly probably normal without evidence of significant degree of prior infarction or active ischemia. However, would employ clinical correlation here. Left ventriculography reveals normal systolic performance with a calculated ejection fraction of 66% without TID. CONCLUSION: Technically difficult study due to breast attenuation and grossly probably normal without evidence of significant degree of ischemia or prior infarction, but due to technical nature of study would suggest clinical correlation. Normal left ventricular systolic performance without evidence of transient ischemic dilatation or stress induced segmental wall motion abnormalities. TID: [id number] RECEIPT: [id number] ZORAN/INNA/MATTY
--- NOTE | 2021-01-16 07:26 | Ultrasound Report ---
Renal ultrasound INDICATION: Urinary tract infection FINDINGS: Right kidney measures 11.0 x 4.4 x 5.4 cm. Left kidney measures 10.5 x 5.4 x 5.4 cm. No mas s or cyst is seen. No hydronephrosis. Bladder is not well seen however visualized portions appear nor mal. IMPRESSION: No acute findings. Signer Name: Trace Stephens MD Signed: 01/16/2021 7:22 AM Workstation Name: [id number]
--- NOTE | 2021-01-16 09:36 | Treadmill Report ---
[facility] Test Date: 2021-01-15 Test Time: 09:57:00 Pat Name: DEVIN MERIDA Department: Room: Gender: F [employer] Machine: Misty Rivas : 1970 Requested By: CINDI YE Order Number: [id number] Reading MD: Cam Alexander Interpretive Statements Electronically Signed On 01-16-2021 9:36:26 EDT by Cam Alexander
== END 2021-01-15 07:34 | disposition home or self-care (01) ==
LOC: CARD 07:33
PROVIDERS: ATTEND Surgery
DX: Z01.810 Encounter for preprocedural cardiovascular examination (principal); E66.01 Morbid (severe) obesity due to excess calories; N39.0 Urinary tract infection, site not specified
CPT/HCPCS: 76770; 78452; 93017; A9502; J2785

== ENCOUNTER 2021-04-23 10:25 | Outpatient (CLI) | payer MEDICARE ==
--- NOTE | 2021-04-23 11:40 | Cat Scan Report ---
CT ABDOMEN AND PELVIS WITHOUT CONTRAST INDICATION / CLINICAL INFORMATION: HEMATURIA. TECHNIQUE: Axial CT images were obtained through the abdomen and pelvis without IV contrast. Sagittal and dejesus l reformatted images. All CT scans at this location are performed using CT dose reduction for ALARA b y means of automated exposure control. COMPARISON: CT abdomen pelvis with contrast 11/22/2019 FINDINGS: LOWER CHEST: No significant abnormality. LIVER: No significant abnormality. GALLBLADDER: No significant abnormality. BILE DUCTS: No significant abnormality. PANCREAS: No significant abnormality. SPLEEN: No significant abnormality. ADRENALS: No significant abnormality. RIGHT KIDNEY and URETER: No significant abnormality. LEFT KIDNEY and URETER: A solitary punctate calyceal stone is suspected at the inferior pole of the l eft kidney on image 69, series 2. No significant abnormality otherwise. STOMACH and SMALL BOWEL: No significant abnormality. COLON: Surgical suture line is noted in the descending colon, correlate with history. No evidence for mass, obstruction or inflammatory changes. APPENDIX: No significant abnormality. PERITONEUM: No free fluid. There is trace pelvic fluid which has decreased since the previous exam. N o fluid collection. LYMPH NODES: No significant adenopathy. AORTA and ARTERIES: No significant abnormality. IVC and VEINS: No significant abnormality. URINARY BLADDER: No significant abnormality. REPRODUCTIVE ORGANS: Stable hysterectomy changes. The vaginal cuff is unremarkable. The adnexa are un remarkable. 4.2 cm right ovarian cyst has resolved. ADDITIONAL FINDINGS: Stable small umbilical hernia containing fat and right paraumbilical hernia cont aining fat. SKELETAL SYSTEM: No significant abnormality. IMPRESSION: Punctate calyceal stone is suspected at the inferior pole of the left kidney as described. No uretera l stones or hydronephrosis. No obvious renal mass on noncontrast CT. Right ovarian cyst has resolved since the previous exam. Trace pelvic fluid is identified which has d ecreased. Stable umbilical and right paraumbilical hernias containing fat. Surgical changes as described. Signer Name: Luis Felipe Lozano Jr, MD Signed: 04/23/2021 11:35 AM Workstation Name: [id number]
== END 2021-04-23 10:26 | disposition home or self-care (01) ==
LOC: CT 10:25
PROVIDERS: ATTEND Urology
DX: K42.9 Umbilical hernia without obstruction or gangrene (principal); R31.9 Hematuria, unspecified; Z90.710 Acquired absence of both cervix and uterus
CPT/HCPCS: 74176